=== PATIENT | male | born 1950 | race African-American/Black ===

== ENCOUNTER 2017-05-15 07:00 | Inpatient (IN) | payer BC ==
[~2017-05-15] VITALS: Ht 175.3 cm; Wt 79.2 kg
[2017-05-15] VITALS (21 sets, daily range): BP systolic 116–159; BP diastolic 62–96; PULSE 56–76; RESP 11–23; Ht 175.3 cm; Wt 79.2 kg
[2017-05-15] MEDS ORDERED: PROPOFOL 20 ML ONE (08:10)
[2017-05-15] MEDS ORDERED: MIDAZOLAM 1 MG/ML 2 ML INJ ONE (08:10)
[2017-05-15] MEDS ORDERED: LIDOCAINE 2% (SDV) 5 ML INJ ONE (08:10)
[2017-05-15] MEDS ORDERED: SUCCINYLCHOLINE CHLORIDE 100 MG/5 ML SYG IV ONE (08:10)
[2017-05-15] MEDS ORDERED: FENTAnyl 50 MCG/ML VIAL ONE ×2 (08:11→16:22)
[2017-05-15] MEDS ORDERED: LIDOCAINE 2% JELLY 5 ML ONE (08:15)
[2017-05-15] MEDS ORDERED: ELVI1TAB PO (08:26)
[2017-05-15] MEDS ORDERED: ONDANSETRON 4 MG INJ IV PRN ×2 (08:30→10:00)
[2017-05-15] MEDS ORDERED: DIPHENHYDRAMINE 50 MG INJ IV PRN ×2 (08:30→10:00)
[2017-05-15] MEDS ORDERED: LACTATED RINGER'S 1,000 ML IV SCH (08:30)
[2017-05-15] MEDS ORDERED: EPHEDrine SULFATE 50 MG/5 ML SYG IV PRN (08:30)
[2017-05-15] MEDS ORDERED: PROCHLORPERAZINE 10 MG INJ IV PRN (08:30)
[2017-05-15] MEDS ORDERED: HYDROmorphONE (0.2 MG/ML) 10ML SYG IV PRN (08:30)
[2017-05-15] MEDS ORDERED: hydrALAzine 20 MG INJ IV PRN (08:30)
[2017-05-15] MEDS ORDERED: LABETALOL HCL 20MG INJ IV PRN (08:30)
[2017-05-15] MEDS ORDERED: MEPERIDINE 25 MG INJ IV PRN (08:30)
[2017-05-15] MEDS ORDERED: CEFAZOLIN 2 GM/50 ML (PMX) 50 ML IVPB SCH (08:30)
[2017-05-15] MEDS ORDERED: FENTAnyl 50 MCG/ML VIAL IV PRN (08:30)
[2017-05-15] MEDS ORDERED: BUPIVACAINE 0.5%/EPI (SDV) 30 ML INJ ONE (08:41)
[2017-05-15] MEDS ORDERED: CEFAZOLIN 1 GM INJ ONE ×2 (08:41→11:28)
[2017-05-15] MEDS ORDERED: SURGIFOAM POWDER 1 GM KIT ONE (08:41)
[2017-05-15] MEDS ORDERED: GELATIN SIZE 100 SPONGE ONE (08:41)
[2017-05-15] MEDS ORDERED: HEPARIN 1000 UNITS/ML 10 ML INJ ONE (09:19)
--- NOTE | 2017-05-15 09:37 | HPN ---
Date/Time of Note Date/Time of Note DATE: 05/15/17 TIME: 09:37 Interval H&P Admission Note Pt. seen H&P reviewed: No system changes ANGIE KNAPP PA-C May 15, 2017 09:37
[2017-05-15] MEDS ORDERED: ACETAMINOPHEN 325 MG TAB PO PRN (10:00)
[2017-05-15] MEDS ORDERED: ZOLPIDEM 5 MG TAB PO PRN (10:00)
[2017-05-15] MEDS ORDERED: HYDROmorphONE 1 MG/ML SYG IV PRN (10:00)
[2017-05-15] MEDS ORDERED: CEPASTAT LOZENGE MT PRN (10:00)
[2017-05-15] MEDS ORDERED: NALOXONE (0.4 MG/ML) INJ IV PRN (10:00)
[2017-05-15] MEDS ORDERED: BISACODYL 10 MG SUPP PR PRN (10:00)
[2017-05-15] MEDS ORDERED: AL HYDROX/MG HYDROX/SIMETH 30 ML CUP PO PRN (10:00)
[2017-05-15] MEDS ORDERED: ROCURONIUM 50 MG INJ ONE ×2 (11:28→13:59)
[2017-05-15] MEDS ORDERED: METOCLOPRAMIDE 10 MG INJ ONE (11:29)
[2017-05-15] MEDS ORDERED: ONDANSETRON 4 MG INJ ONE (11:29)
[2017-05-15] MEDS ORDERED: DEXAMETHASONE 4 MG/ML 1 ML INJ ONE (11:29)
[2017-05-15] MEDS ORDERED: KETAMINE 500 MG INJ ONE (11:53)
[2017-05-15] MEDS ORDERED: HYDROmorphONE 2 MG/ML SYG ONE (13:03)
[2017-05-15] MEDS ORDERED: LABETALOL HCL 20MG INJ ONE (13:06)
[2017-05-15] MEDS: THROMBIN 5000 UNIT VIAL ONE ×2 (13:23→13:24)
[2017-05-15] MEDS ORDERED: SURGIFOAM POWDER 1 GM KIT MM ONE (13:25)
[2017-05-15] MEDS: CEFAZOLIN 1 GM/50 ML (PMX) 50 ML IVPB SCH ×2 (14:00→22:06)
--- NOTE | 2017-05-15 14:03 | OPR ---
DATE OF OPERATION: 05/15/2017 PREOPERATIVE DIAGNOSES: 1. History of L4-L5, L5-S1 instrumented fusion. 2. L4-L5 pseudoarthrosis. POSTOPERATIVE DIAGNOSES: 1. History of L4-L5, L5-S1 instrumented fusion. 2. L4-L5 pseudoarthrosis. PROCEDURE: 1. Removal of hardware posterior lumbar spine, L4, L5, S1, with evaluation of fusion. 2. Use of C-arm fluoroscopy with interpretation without radiologist present. 3. Intraoperative neuromonitoring (1.5 hours). PRIMARY SURGEON: Kurtis Harper MD ANALYST COMPETITIVE INTELLIGENCE: Tequila Rodgers PA-C NEED FOR HORSE STUD MANAGER: A surgical elastic knitter was required for retraction of neurovascular kar[place] ents. ESTIMATED BLOOD LOSS: 20 mL. DRAINS: None. SPECIMENS: Hardware. COMPLICATIONS OF PROCEDURES: None. ANESTHESIOLOGIST: Dr. Zapata TYPE OF ANESTHESIA: General. INDICATIONS FOR PROCEDURE: This is a 67-year-old HIV-positive gentleman who had previously undergon e 2 lumbar surgeries. He has undergone instrumented fusion at L4-L5 and L5-S1. He developed pseudo arthrosis at L4-L5 with loosened hardware. As such, it is recommended that he undergo the removal o f the hardware with fusion. This is stage I/III. DESCRIPTION OF PROCEDURE IN DETAIL: The patient was identified in preoperative holding area, given Ancef antibiotic, taken to the operating room, where he was successfully placed under general anesth esia. Neuromonitoring leads were placed, sequential compressive devices were applied. Atkins cathet er was introduced. Arterial line was placed. During Atkins catheter insertion, hematuria was identi fied, but there is no difficulty with passage of the Atkins catheter. Postoperative urology consulta tion will be obtained. Neuromonitoring leads were placed. Monitoring included SSEP, MEP, and EMG. This was performed by [facility]. Start time for this stage was 11:15 a.m., closure time was 12:30 p.m. The patient was placed on the operating table in prone position over a Venkata frame. All bony prominences were well padded about back was then prepped and draped in the usual sterile fashion. The C-arm was use d to identify the incision site. I utilized a portion of the patient's previous incision. Incision was taken down to dorsal fascia. This was incised with Bovie cautery. I then dissected out latera lly over where the screws would be. There was a sheet of bone over the screws bilaterally. This ma de the removal of the hardware more difficult and added at least 30 to 45 minutes to the procedure. I had to use osteotomes in order to chisel the bone off of the hardware to clearly skeletonized the hardware. I next removed the set screws at L4, L5, and S1 bilaterally with removal of the earl bila terally. I then evaluated the fusion, and there appeared to be fusion at L5-S1, but there was a pse udoarthrosis at L4-L5. I then irrigated the wound and provisionally closed this wound with an 0 Yoel ryl stitch and a 2-0 Vicryl stitch. Steri-Strips and dressings were then applied. The patient was then transferred to the operating table in supine position for stage II, which will be dictated separately. There were no complications during stage I. Lap, sponge, and instrument co unts were correct x2. FINDINGS: Neuromonitoring at the start of the case revealed bilateral L4 amplitude down 40%, left L 5 amplitude down 50%, right S1 amplitude down 30%. At the end of the case, nerve signals remained u nchanged. The patient had significant bone over the hardware throughout the lumbar spine. Dictated By: KURTIS SAXENA/DAYANARA Conf#: [id number] DID#: [id number]
[2017-05-15] MEDS ORDERED: ACETAMINOPHEN 1000MG/100ML IV 100 ML ONE (14:59)
[2017-05-15] MEDS ORDERED: SUGAMMADEX SODIUM 200 MG/2 ML VIAL IV ONE (14:59)
--- NOTE | 2017-05-15 15:57 | OPR ---
DATE OF OPERATION: 05/15/2017 PREOPERATIVE DIAGNOSES: History of L4-5, L5-S1 instrumented fusion with pseudoarthrosis and anterol isthesis at L4-5. POSTOPERATIVE DIAGNOSIS: History of L4-5, L5-S1 instrumented fusion with pseudoarthrosis and jimi listhesis at L4-5. PROCEDURES: 1. Anterior lumbar interbody fusion at L4-L5. 2. Placement of intervertebral biomechanical device at L4-5. 3. Use of allograft. 4. Anterior hardware at L4-5. 5. Application of NuShield. 6. Use of C-arm fluoroscopy with interpretation without radiologist present. 7. Intraoperative neuro-monitoring (1 hour 15 minutes). PRIMARY SURGEON: Dr. Kurtis Harper MD COSURGEON: Pawan Mendoza MD. SECOND SHAPER SETTER: Tequila Rodgers PA-C. NEED FOR CO-SURGEON: A co-surgeon was required in order to provide vascular access. This is standa rd of care. ESTIMATED BLOOD LOSS: Per Dr. Mendoza. DRAINS: None. SPECIMENS: L4-5 disk. COMPLICATIONS OF PROCEDURES: None. ANESTHESIOLOGIST: Dr. Zapata. TYPE OF ANESTHESIA: General. INDICATIONS FOR PROCEDURE: This is a 67-year-old gentleman who had previously undergone L4-5, L5-S1 instrumented fusion. He developed a pseudoarthrosis at L4-5. Stage I was completed with removal o f the posterior hardware and patient now presents for stage II. The other stages will be dictated s eparately. DESCRIPTION OF PROCEDURE IN DETAIL: The patient was placed on the operating table in supine positio n. Neuro-monitoring was utilized during this portion of the procedure for 1 hour and 15 minutes to include SSEP, MEP and EMG. This was performed by [facility]. Start time was 1 p.m., closure time was 2:15 p.m. All bony prominences were well padded. The abdomen was prepped and draped in [facility] sterile fashion. Dr. Mendoza performed an anterior approach to the spine from the left sided anterior retroperitoneal approach. He will dictate the approach separately. Once we identified the L4-5 level, a bent spinal needle was placed and AP and lateral imaging studies were obtained to con firm the correct levels. Annulotomy was performed followed by radical diskectomy using curettes, Ke rrison punches and pituitary rongeurs. Endplates were prepared. I placed various trials and chose the appropriate graft height. I then took the titanium cage within which I placed allograft and I i mpacted intervertebral biomechanical device into the L4-5 level to complete the anterior lumbar inte rbody fusion at L4-5. I then placed the anterior screws and plate using 25 mm screws. I was then a ble to place the screw all the way on the left due to the angle. Once the hardware was in place, I took final AP and lateral images and I was happy with placement of the hardware and alignment of the spine. All nerve signals returned to normal. The wound was irrigated. A NuShield device was appl ied and Dr. Mendoza proceeded to close the wound in layers and he will dictate the closure separat andria. Lap, sponge and instrument counts were correct x2. There were no apparent complications durin g this stage. The patient will be transferred into the prone position for stage III, which will be dictated separately. IMPLANTS: Renovis 13 mm x 7 degree x 30 x 38 mm titanium cage with 25 mm screws. FINDINGS: Neuro-monitoring at the start of the case revealed bilateral L4 amplitude down 40%, left L5 amplitude down 30%, right S1 amplitude down 30%. At the end of the case, nerve signals returned to normal. The patient had pseudoarthrosis at the L4-5 level. Dictated By: KURTIS SAXENA/DAYANARA Conf#: [id number] DID#: [id number]
[2017-05-15] MEDS ORDERED: EPHEDrine SULFATE 50 MG/5 ML SYG ONE (16:01)
--- NOTE | 2017-05-15 16:11 | RADRPT ---
PROCEDURE: Intraoperative imaging of the lumbar spine with fluoroscopy. CLINICAL INDICATION: Back pain. Intraoperative. TECHNIQUE: 14 images of the lumbar spine were obtained in the operating room with an image intensi fier. No radiologist was in attendance. Fluoroscopy time is 56 seconds. COMPARISON: No prior study is available for comparison. FINDINGS: For the purposes of this report, the last apparent true disc level is considered to be L5-S1. Based on this, images demonstrate pedicle screws and connecting rods at L4, L5, S1. Anterior fusion devic e is also present at L5-S1. There are bilateral total hip arthroplasties. IMPRESSION: 1. Intraoperative imaging of the lumbar spine. RPTAT: QQ .Aren Tolentino MD, MD Date Time Electronically viewed and signed by .Aren Tolentino MD, on 05/15/2017 16:10 .R/
--- NOTE | 2017-05-15 16:55 | SIPON ---
Date/Time of Note Date/Time of Note DATE: 05/15/17 TIME: 16:53 Operative Report Preoperative Diagnosis L4-5 pseudoarthrosis Postoperative Diagnosis L4-5 pseudo Operation/Procedure Performed L4-5 fusion Surgeon see signature line activities assistant Ana Maria Anesthesia: general Estimated blood loss: 150 - 200 ml's Transfusion Required none Specimen disk and hardware Grafts/Implants cage and screws Complications none ARUNA WHITMAN MD May 15, 2017 16:55
[2017-05-15] MEDS: HYDROmorphONE (0.2 MG/ML) 10ML SYG IV PRN ×2 (17:37→17:53)
[2017-05-15] MEDS: HYDROmorphONE 0.2 MG/ML PCA IV SCH (18:18)
[2017-05-15] MEDS: D5W-0.45 NACL + KCL 20 MEQ 1,000 ML IV SCH ×2 (19:37→20:13)
[2017-05-15] MEDS: DOCUSATE SODIUM 100 MG CAP PO SCH (20:14)
[2017-05-15] MEDS: morphine (ER) 15 MG TAB PO SCH (20:16)
--- NOTE | 2017-05-15 20:23 | CONS ---
Date/Time of Note Date/Time of Note DATE: 05/15/17 TIME: 20:12 Assessment/Plan Assessment/Plan Chief Complaint/Hosp Course 67-year-old male underwent surgery on his back today to remove screws, he has an indwelling Atkins catheter and the urine is blood-tinged. No similar problem with the urine in the past. We will send urine for culture and sensitivity also for cytology and once the urine is clear will discontinue the Atkins catheter and see if he does void and empty his bladder Problems: Consultation Date/Type/Reason Admit Date/Time May 15, 2017 at 07:45 Date of Consultation: May 15, 2017 Type of Consultation: Urology Reason for Consultation Gross hematuria Referring Provider: ARUNA WHITMAN MD Hx of Present Illness 67-year-old male underwent surgery for removal of screws from his back today. he had a Atkins catheter inserted at the time of the surgery and in the recovery room the urine was bloody therefore a urological consultation was requested the patient denies any prior history of gross hematuria. He does urinate at night once or twice during the day every 2-3 hours. His urinary stream is slow sometime. He is HIV positive asymptomatic and is on many medications for it his home medications include diclofenac ,Atripla , Truvada , he also has been on [place] for the pain and Ambien to sleep Constitutional: no complaints Eyes: no complaints ENT: no complaints Respiratory: no complaints Gastrointestinal: no complaints Genitourinary: hematuria, other (Atkins catheter in place) Musculoskeletal: back pain, no complaints Neurologic: no complaints Past Medical History Medical History: other (HIV positive) Past Surgical History Past Surgical Hx: other (Right inguinal hernia repair in addition to multiple surgeries bilateral hip replacement back surgery over the lumbar area as well as the cervical area) Social History Patient stated that he is homosexual and most likely he got the HIV about 30 years ago from sexual intercourse, 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 No allergies Smoking Status: Unknown if ever smoked Exam/Review of Systems Vital Signs Vitals Vital Signs Date Time Temp Pulse Resp B/P Pulse Ox O2 Delivery O2 Flow Rate FiO2 05/15/17 19:00 97.9 68 16 159/76 99 Room Air 05/15/17 17:16 8.0 Exam Constitutional: alert, oriented Psych: no complaints Head: normocephalic Eyes: nl conjunctiva ENMT: nl external ears & nose Neck: non-tender, supple Respiratory: normal air movement Cardiovascular: No edema Genitourinary - Male: nl penis, nl scrotum, other (Atkins draining blood-tinged urine but is clear than when I saw him in recovery room) Extremities: No calf tenderness, No edema Skin: nl turgor Lymph: nl lymph nodes Medications Medications Current Medications Lactated Ringer's 1,000 ml @ 0 mls/hr Q0M IV ; Start 05/15/17 at 08:30; Stop 05/15/17 at 21:00 Potassium Chloride/Dextrose/ Sod Cl (D5-1/2ns + KCl 20 Meq) 1,000 ml @ 100 mls/ hr Q10H IV ; Start 05/15/17 at 09:37 Acetaminophen/ Hydrocodone Bitart (Bat[place] (10/325)) 1 tab Q4H PRN PO PAIN LEVEL 1-5; Start 05/15/17 at 10:00 Acetaminophen/ Hydrocodone Bitart ([place] (10/325)) 2 tab Q4H PRN PO PAIN LEVEL 6-10; Start 05/15/17 at 10:00 Hydromorphone HCl 0.2 mg 0.2 mg Q1H PRN IV BREAKTHROUGH PAIN; Start 05/15/17 at 10:00 Cefazolin Sodium (Ancef 1 Gm/50 ml (Pmx)) 50 ml @ 100 mls/hr Q8H IVPB ; Start 05/15/17 at 14:00; Stop 05/16/17 at 06:29 Ondansetron HCl (Zofran Inj) 4 mg Q6H PRN IV NAUSEA AND/OR VOMITING; Start 05/22 at 10:00 Bisacodyl (Dulcolax Supp) 10 mg DAILY PRN DC CONSTIPATION; Start 05/15/17 at 10:00 Docusate Sodium (Colace) 100 mg BID PO ; Start 05/15/17 at 21:00 Al Hydrox/Mg Hydrox/Simethicone (Mag-Al Plus) 15 ml Q6H PRN PO CONSTIPATION/ DYSPEPSIA; Start 05/15/17 at 10:00 Acetaminophen (Tylenol Tab) 650 mg Q4H PRN PO VICTORIA OR TEMP GREATER THAN 101.3F; Start 05/15/17 at 10:00 Cyclobenzaprine HCl (Flexeril) 10 mg TID PRN PO MUSCLE SPASMS; Start 05/15/17 at 10:00 Phenol (Cepastat Lozenge) 1 lozenge PRN PRN MT SORE THROAT; Start 05/15/17 at 10:00 Diphenhydramine HCl (Benadryl) 25 mg Q6H PRN IV ITCHING; Start 05/15/17 at 10: 00 Naloxone HCl (Narcan) 0.2 mg Q2M PRN IV RR 8 BREATHS/MIN OR LESS; Start at 10:00 Hydromorphone HCl (Dilaudid PIPELINE OPERATOR) PIPELINE OPERATOR to be started in PACU Q4PCA IV Last administered on 05/15/17t 18:18; Admin Dose 6 MG; Start 05/15/17 at 10:00 Miscellaneous Information 1. Hold PIPELINE OPERATOR at 1,000... PIPELINE OPERATOR IV ; Start 05/15/17 at 10 :00 Morphine Sulfate (Ms Contin (Er)) 15 mg BID PO ; Start 05/15/17 at 21:00 Miscellaneous Information (* Miscellaneous Pharmacy Order) atripla - 1 PO daily sara... ONCE XX ; Start 05/15/17 at 10:00 OKSANA BERUMEN MD May 15, 2017 20:22
[2017-05-16] VITALS: BP 153/71; PULSE 87; RESP 19
[2017-05-16] MEDS: CYCLOBENZAPRINE 10 MG TAB PO PRN ×2 (00:05→08:45)
--- NOTE | 2017-05-16 02:00 | OPR ---
DATE OF OPERATION: 05/15/2017 PREOPERATIVE DIAGNOSIS: Pseudoarthrosis at L4-5 with history of previous L4-5, L5-S1 instrumented f usion, now status post anterior lumbar interbody fusion at L4-5. POSTOPERATIVE DIAGNOSIS: Pseudoarthrosis at L4-5 with history of previous L4-5, L5-S1 instrumented fusion, now status post anterior lumbar interbody fusion at L4-5. PROCEDURE: 1. Removal of pedicle screws at L4, L5, S1 bilaterally with placement of new pedicle screws at L4 a nd L5 on the left. 2. Posterolateral fusion at L4-5. 3. Use of C-arm fluoroscopy with interpretation without radiologist present. 4. Allograft. 5. Intraoperative neuromonitoring (1 hour 45 minutes). PRIMARY SURGEON: Kurtis Harper MD MANAGER OPERATIONS AND PROCUREMENT: Tequila Rodgers PA-C NEED FOR PRIVATE DUTY NURSE: During this spinal surgical procedure, my legal assistant was used to retrac t and protect the spinal nerves and dural sac. My legal assistant also employed the suction catheters to evacuate blood from the surgical field to improve visualization of the neural structures. The constance tant was medically necessary to facilitate the completion of the surgery in a safe and expeditious gilda. State of [place] regulations, as well as hospital bylaws, preclude the use of non-license d health care personnel, such as operating room technicians, to perform these functions. IMPLANTS: 1. NeuroStructures Palladian pedicle screws, 8.5 x 50 mm left L4, 7.5 x 45 mm left L5. 2. Fibergraft matrix. 3. 40 mm earl. FINDINGS: Neuromonitoring at the start and at the end of the case were normal. Please see body of dictation for full report of findings. ESTIMATED BLOOD LOSS: 60 mL. DRAINS: None. SPECIMENS: Hardware. COMPLICATIONS OF PROCEDURES: None. ANESTHESIOLOGIST: Dr. Zapata TYPE OF ANESTHESIA: General. INDICATIONS FOR PROCEDURE: This is a 67-year-old gentleman who has previously undergone an L4 to S1 instrumented fusion several years ago. He developed pseudoarthrosis at L4-5. Given this, I recomm ended that he undergo revision surgery. He has completed the anterior portion, which is dictated se parately, and now presents for stage III of the surgery. Previous stages are dictated separately. DESCRIPTION OF PROCEDURE IN DETAIL: The patient completed stage I and II of the surgery which were dictated separately. He was placed on the operating table in prone position. All bony prominences were well padded. Neuromonitoring was utilized during this portion of the procedure for 1 hour and 45 minutes, to include SSEP, MEP and EMG. This was performed by [facility]. Start time was 2 :45 p.m., closure time was 4:30 p.m. The back was prepped and draped in usual sterile fashion. I u sed the patient's previous incision. I incised the skin and the dorsal fascia. I dissected out and identified the hardware bilaterally. I next removed the pedicle screws at L4, L5 and S1. Once scr ews were removed, I irrigated the wound. I curetted the screw holes. There were no signs of an inf ection. On the left, I placed pedicle screws at L4 and L5 using larger diameter screws at both leve ls and a longer screw at the upper level. The previous screws on this side were 6.5 x 45 mm. The S 1 screw was not replaced. This was not done given that he had already fused at L5-S1. On the right side, I placed 8.5 mm screws at L4 and L5, but these screws did not have good purchase and therefor e they were removed and I elected not to place hardware on this side. I irrigated the wound. I ralph phyllis the appropriate sized earl with set screws, tightening per manufacture's specifications. Once th e hardware was in, I took final AP and lateral images. I was happy with placement of the hardware a nd alignment of the spine. I then took the Fibergraft matrix allograft and I placed this into the s crew holes bilaterally at S1 and on the right at L4 and L5 to fill the bone void. I then performed a posterolateral fusion at L4-5 with the allograft. I then closed the wound with a #1 Stratafix sut ure. I closed subcutaneous tissue with a 2-0 Vicryl stitch. A 4-0 Monocryl closure was then perfor med. Dermabond and sterile dressings then applied. The patient was then awakened from anesthesia a nd taken to recovery in stable condition. Lap, sponge and instrument counts were correct x2. There were no apparent complications during the procedure. The patient will be admitted to [facility] for routine postoperative care to include pain contr ol, neurovascular checks, antibiotics and physical therapy. Dictated By: KURTIS HARPER MD BB/DAYANARA Conf#: [id number] DID#: [id number]
--- NOTE | 2017-05-16 03:28 | CONS ---
DATE OF ADMISSION: 05/15/2017 DATE OF CONSULTATION: REASON FOR CONSULTATION: Evaluation for anterior retroperitoneal exposure, interbody fusion of the lumbosacral spine. HISTORY OF PRESENT ILLNESS: This is a 67-year-old male with a history of HIV, degenerative disk dis ease, lumbosacral spine, who is undergoing an anterior retroperitoneal exposure at level of L4-L5. PAST MEDICAL HISTORY: Positive for HIV. PAST SURGICAL HISTORY: Posterior spine surgery. ALLERGIES: NONE. SOCIAL HISTORY: No smoking, drinking or drug use. MEDICATIONS: List reviewed. PHYSICAL EXAMINATION: VITAL SIGNS: Blood pressure is 110/60, pulse is 80, respirations 18. CARDIOVASCULAR: Normal S1, S2. LUNGS: Clear. ABDOMEN: Soft. EXTREMITIES: Warm. IMPRESSION: Degenerative disk disease, lumbosacral spine. RECOMMENDATIONS: We will proceed with anterior retroperitoneal exposure and interbody fusion, lumbo sacral spine. Risks, benefits, complications, alternative therapies explained to the patient. All questions answered. Risks and benefits that were explained to the patient and the family included, but not limited to, bleeding, infection, damage to the bowels, damage to the ureter, retrograde ejac ulation, loss of limb, loss of life, DVT, PE, need for further surgeries and others. All questions answered. Dictated By: CAREY BYRD MD FM/DAYANARA Conf#: [id number] DID#: [id number] CC: ARUNA WHITMAN MD;*EndCC*
--- NOTE | 2017-05-16 03:37 | OPR ---
DATE OF OPERATION: PREOPERATIVE DIAGNOSIS: Degenerative disk disease, lumbosacral spine. POSTOPERATIVE DIAGNOSIS: Degenerative disk disease, lumbosacral spine. PROCEDURE: 1. Anterior retroperitoneal exposure, interbody fusion, lumbosacral spine. 2. Lysis of adhesions. 3. Unusually difficult operation secondary to adhesions which added 20% to the length of the opera tion. SURGEON: Dr. Mendoza CO-SURGEON: Dr. Harper INFORMED CONSENT: Risks, benefits, complications, alternative therapies, high risk nature of the op eration fully explained to the patient and the family, consent obtained. Risks and benefits that we re explained to the patient and the family included, but not limited to, bleeding, infection, damage to the bowels, damage to ureter, retrograde ejaculation, sexual dysfunction, loss of limb, loss of life, PE, DVT, blood transfusions and others. All questions answered. OPERATIVE TECHNIQUE: The patient was placed in supine position, prepped and draped in usual sterile fashion. An 8 cm incision was made left lower quadrant in horizontal fashion. Incision was taken down to the subcutaneous tissue which was then opened using electrocautery. The left anterior rectu s sheath was opened in the direction of the wound. Posterior rectus sheath was opened longitudinall y about 2 cm. Bookwalter retractor was placed, retracting the bowel contents to the right, left rec tus muscle to the left. After dissecting the soft tissue, the left psoas muscle was identified, in addition to a left common and external iliac artery, left common and external iliac vein and the ure ter. The left common and external iliac artery was dissected using a peanut dissector. Left common and e xternal iliac vein was dissected using a peanut dissector. Left iliolumbar vein was transected usin g 2-0 silk sutures and a titanium tie. The lowest lumbar vessels were ligated using titanium clips. The exposure for L4-L5 was obtained by retracting the left common iliac artery and vein, and vena cava and aorta to the right. We proceeded with diskectomy and the placement of a new cage. Please refer to Dr. Harper's dictation for the details of that operation. After all the x-rays were sat isfactory, read by Dr. Harper, needle counts and sponge count were correct, no evidence of any bl eeding was noted. The wound was irrigated using antibiotic solution. Posterior rectus sheath was c losed using the 0 Vicryl suture in a running fashion. Anterior rectus sheath was closed using a #1 Vicryl suture in running fashion with interrupted sutures in the middle, and the wound was irrigated and closed in 2 layers of 3-0 Vicryl suture for subcutaneous and Steri-Strips for the skin. Patien t tolerated procedure well. Dictated By: CAREY VALDIVIA/DAYANARA Conf#: [id number] DID#: [id number]
[2017-05-16] MEDS: CEFAZOLIN 1 GM/50 ML (PMX) 50 ML IVPB SCH (04:43)
[2017-05-16] MEDS: D5W-0.45 NACL + KCL 20 MEQ 1,000 ML IV SCH ×2 (04:43→15:37)
[2017-05-16 05:27] VITALS: BP 172/82; PULSE 107; RESP 21
[2017-05-16 05:49] LABS: ABNORMAL IP MESSAGE 1; BASOPHILS % 0.3 % (0.0-2.0); EOSINOPHILS % 0.1 % (0.0-7.0); HEMATOCRIT 36.8 % (42.0-52.0); HEMOGLOBIN 12.9 g/dl (14.0-18.0); LYMPHOCYTES # 1.9 10^3/ul (0.8-2.9); LYMPHOCYTES % 13.6 % (15.0-51.0); MEAN CORPUSCULAR HEMOGLOBIN 33.8 pg (29.0-33.0); MEAN CORPUSCULAR HGB CONC 35.1 g/dl (32.0-37.0); MEAN CORPUSCULAR VOLUME 96.3 fl (82.0-101.0); MEAN PLATELET VOLUME 13.2 fl (7.4-10.4); MONOCYTE # 1.2 10^3/ul (0.3-0.9); MONOCYTES % 8.7 % (0.0-11.0); NEUTROPHIL # 10.8 10^3/ul (1.6-7.5); NEUTROPHILS % 76.9 % (39.0-77.0); PLATELET COUNT 125 10^3/UL (140-415); POSITIVE DIFF @See below; RED BLOOD COUNT 3.82 10^6/ul (4.70-6.10); RED CELL DISTRIBUTION WIDTH 11.9 % (11.5-14.5); WHITE BLOOD COUNT 14.1 10^3/ul (4.8-10.8)
[2017-05-16 06:36] LABS: CALCIUM 8.4 mg/dl (8.4-10.2); CREATININE 0.91 mg/dl (0.61-1.24); MAGNESIUM 1.7 mg/dl (1.7-2.5); POTASSIUM 3.9 mmol/L (3.5-5.1)
[2017-05-16 07:54] VITALS: BP 173/87; RESP 21
[2017-05-16] MEDS ORDERED: MAGNESIUM SULFATE 3 GM in SOD CHLORIDE 0.9% 100 ML IVPB ONE (08:30)
[2017-05-16] MEDS: morphine (ER) 15 MG TAB PO SCH ×2 (08:44→20:19)
[2017-05-16] MEDS: DOCUSATE SODIUM 100 MG CAP PO SCH ×2 (08:45→20:19)
--- NOTE | 2017-05-16 09:08 | CONS ---
DATE OF ADMISSION: 05/15/2017 DATE OF CONSULTATION: 05/16/2017 TYPE OF CONSULTATION: Postoperative medical consultation. Thank you very much for allowing me to evaluate this 67-year-old male who just underwent lumbar back surgery. HISTORICAL EVENTS: As you well know, this patient has had prior lumbar spine surgeries in 1999 and 2002 and because of continued pain, it was felt that surgical intervention needed for removal of a " screw". Postoperatively, he notes modest to severe low back pain without radicular leg pain. He de nies cough, wheezing, shortness of breath, nausea, vomiting, or abdominal pain. PAST MEDICAL HISTORY INCLUDES: 1. HIV positivity, being asymptomatic. 2. The above-mentioned spine surgery. 3. Cervical laminectomy. 4. Bilateral hip replacement. 5. No history of hypertension, diabetes, coronary artery disease, phlebitis or ulcers. FAMILY HISTORY: To be reviewed later. ALLERGIES: NONE. MEDICATIONS PRIOR TO ADMISSION: 1. Diclofenac patch b.i.d. 2. Atripla 1 daily. 3. [place] 1 q. 6 p.r.n. PHYSICAL EXAMINATION: GENERAL: [place] male in no acute distress. VITAL SIGNS: BP 118/80, pulse 70, respirations are 20, he was afebrile. EYES: Extraocular muscles were full. NOSE, MOUTH, AND THROAT: Normal. NECK: Supple. There was no jugular venous distention, thyroid enlargement or adenopathy. Carotids 2+. LUNGS: Clear. HEART: Rhythm regular, no murmur. No third or fourth sound. ABDOMEN: Nontender. Liver and spleen were not palpable. No masses or tenderness were noted. EXTREMITIES: No edema. Calves nontender. IMPRESSION: 1. Stable postop lumbar back surgery with now moderate to severe pain, receiving parenteral narcoti cs. 2. Human immunodeficiency virus positivity. We will continue human immunodeficiency virus medicati ons. We will evaluate daily for signs and symptoms of thromboembolic disease. Dictated By: RAGHAVENDRA ARCE/DAYANARA Conf#: [id number] DID#: [id number]
[2017-05-16 10:30] VITALS: BP 151/81
--- NOTE | 2017-05-16 10:47 | PN ---
Date/Time of Note Date/Time of Note DATE: 05/16/17 TIME: 10:45 Assessment/Plan Lines/Catheters IV Catheter Type (from Nrsg): Peripheral IV Assessment/Plan Assessment/Plan POD #1 s/p revision L4-5 ALIF HTN - Dr. 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
[2017-05-16] MEDS: HYDROmorphONE 0.2 MG/ML PCA IV SCH (11:32)
[2017-05-16] MEDS: ELVITEGR/COBICIST/EMTRIC/TENOF 1 EACH TABLET PO SCH (12:43)
[2017-05-16 13:12] LABS: ADD UMIC YES; UR ASCORBIC ACID NEGATIVE (NEGATIVE); UR BILIRUBIN (Dip) NEGATIVE (NEGATIVE); UR BLOOD (Dip) 3+ mg/dL (NEGATIVE); UR CLARITY CLOUDY (CLEAR); UR COLOR YELLOW (YELLOW); UR GLUCOSE (Dip) NEGATIVE (NEGATIVE); UR KETONES (Dip) NEGATIVE (NEGATIVE); UR LEUKOCYTE ESTERASE (Dip) NEGATIVE Leu/ul (NEGATIVE); UR NITRITE (Dip) NEGATIVE (NEGATIVE); UR RBC > 182 /HPF (0-5); UR SPECIFIC GRAVITY (Dip) 1.025 (1.003-1.030); UR TOTAL PROTEIN (Dip) 2+ mg/dl (NEGATIVE); UR UROBILINOGEN (Dip) NEGATIVE (NEGATIVE)
[2017-05-16] MEDS: HYDROCODONE/APAP (10/325) TAB PO PRN (17:53)
[2017-05-16 20:49] VITALS: BP 127/73; RESP 20
[2017-05-17] MEDS: D5W-0.45 NACL + KCL 20 MEQ 1,000 ML IV SCH ×3 (01:37→21:37)
[2017-05-17 05:45] LABS: ABNORMAL IP MESSAGE 1; BASOPHILS % 0.2 % (0.0-2.0); EOSINOPHILS # 0.1 10^3/ul (0.0-0.5); EOSINOPHILS % 0.5 % (0.0-7.0); HEMOGLOBIN 12.6 g/dl (14.0-18.0); LYMPHOCYTES # 0.9 10^3/ul (0.8-2.9); LYMPHOCYTES % 8.5 % (15.0-51.0); MEAN CORPUSCULAR HEMOGLOBIN 32.8 pg (29.0-33.0); MEAN CORPUSCULAR HGB CONC 34.1 g/dl (32.0-37.0); MEAN CORPUSCULAR VOLUME 96.4 fl (82.0-101.0); MEAN PLATELET VOLUME 13.2 fl (7.4-10.4); MONOCYTE # 1.1 10^3/ul (0.3-0.9); MONOCYTES % 10.5 % (0.0-11.0); NEUTROPHIL # 8.5 10^3/ul (1.6-7.5); NEUTROPHILS % 79.9 % (39.0-77.0); PLATELET COUNT 119 10^3/UL (140-415); POSITIVE DIFF @See below; RED BLOOD COUNT 3.84 10^6/ul (4.70-6.10); RED CELL DISTRIBUTION WIDTH 12.3 % (11.5-14.5); WHITE BLOOD COUNT 10.7 10^3/ul (4.8-10.8)
[2017-05-17 05:58] LABS: CALCIUM 9.1 mg/dl (8.4-10.2); CREATININE 0.94 mg/dl (0.61-1.24); MAGNESIUM 2.2 mg/dl (1.7-2.5); POTASSIUM 4.4 mmol/L (3.5-5.1)
[2017-05-17 07:58] VITALS: BP 148/71; RESP 20
--- NOTE | 2017-05-17 08:05 | PN ---
Date/Time of Note Date/Time of Note DATE: 05/17/17 TIME: 08:03 Assessment/Plan Lines/Catheters IV Catheter Type (from Nrs): Peripheral IV Assessment/Plan Assessment/Plan s/p revision lumbar fusion probable HIV dementia urology consult given hematuria and PVR patient is aware of his confusion - was present pre-op acute rehab consult Subjective 24 Hr Interval Summary patient is aware of his confusion Exam/Review of Systems Vital Signs Vitals Vital Signs Date Time Temp Pulse Resp B/P Pulse Ox O2 Delivery O2 Flow Rate FiO2 05/17/17 07:58 98.3 81 20 148/71 99 05/16/17 05:27 Room Air 05/15/17 17:16 8.0 Intake and Output 05/16/17 05/16/17 05/17/17 15:00 23:00 07:00 Intake Total 900 ml 950 ml Output Total 1100 ml 936 ml Balance -200 ml 14 ml Exam Free Text/Dictation neuro deficits same as preop Results Result Diagram: 05/17/17 0447 05/17/17 0447 ARUNA WHITMAN MD May 17, 2017 08:05
[2017-05-17] MEDS: DOCUSATE SODIUM 100 MG CAP PO SCH ×2 (08:53→20:31)
[2017-05-17] MEDS: ELVITEGR/COBICIST/EMTRIC/TENOF 1 EACH TABLET PO SCH (08:53)
[2017-05-17] MEDS: morphine (ER) 15 MG TAB PO SCH ×2 (08:57→20:30)
--- NOTE | 2017-05-17 09:10 | PN ---
DATE: 05/16/2017 SUBJECTIVE: The patient has hematuria after he had surgery yesterday on his back. He does have hem aturia and the patient had an indwelling Atkins catheter. The patient at the present is feeling comf ortable and he denies having any discomfort from the Atkins catheter. PHYSICAL EXAMINATION: VITAL SIGNS: Temperature is 97.7, pulse is 84, respirations 21, blood pressure 151/81. ABDOMEN: Soft. GENITOURINARY: The Atkins catheter is draining clear, but mildly blood-tinged urine. LABORATORY DATA: His CBC shows a white count of 14.1, hemoglobin 12.9, hematocrit 36.8. BUN is 13, creatinine 0.91, sodium 136, potassium 3.9, chloride 107, CO2 21. The urine culture was sent last night and no growth after 24 hours. Urine was also sent for urine cytology x4 and that is still pen ding. The patient is on medications for his HIV positive status, and the patient is also on pain medicatio ns and he was on Ancef, but that was stopped. PLAN: To discontinue the Atkins catheter at 6:00 a.m. and do bladder scan after each voiding and if he does void and has any postvoid residual over 300 mL, he will do straight catheterization, or if h e does not urinate and the bladder volume is over 500, will do straight catheterization as well. Dictated By: OKSANA BERUMEN MD BB/DAYANARA Conf#: [id number] DID#: [id number] CC: ARUNA WHITMAN MD;*[facility]*
[2017-05-17] MEDS ORDERED: HYDROmorphONE 0.5 MG/0.5 ML SYG IV PRN (11:00)
--- NOTE | 2017-05-17 11:13 | CONS ---
Date/Time of Note Date/Time of Note DATE: 05/17/17 TIME: 11:00 Assessment/Plan Assessment/Plan Chief Complaint/Hosp Course 1. This patient is now 2 days postop lumbar spine surgery through an anterior and posterior approach. Underwent a redo spinal fusion surgery. Last evening he became confused and aggressive. He does have a history of intermittent "dementia" which was known preoperatively. The details of this "dementia " are not available. 2. Altered mental status due to a prior neurologic disease . The patient has a normal neurologic exam today. He has no obvious focal neurologic deficits. He has a sister in the room with him 3. HIV positive on medication 4. Hypertension, coming under control on current medication. 5. Continue current medication and physical therapy. The patient is being considered for acute rehab unit. 6. Urinary retention. A Atkins catheter was removed this morning and the patient is voiding with low postvoid residual urine volumes. Problems: Consultation Date/Type/Reason Admit Date/Time May 15, 2017 at 07:45 Initial Consult Date 05/15/17 Type of Consultation: Urology Referring Provider: ARUNA WHITMAN MD 24 HR Interval Summary Free Text/Dictation He is now 2 days postop a anterior posterior lumbar spine 2 stage surgery. Patient is awake and responsive this morning. He became confused and aggressive last evening. Security was called. He was transferred to in a different room closer to the nurses desk. This morning he knows his name. He is confused to time and place. From reading the chart appears that the patient has a history of "HIV dementia". Constitutional: improved, no complaints Exam/Review of Systems Vital Signs Vitals Vital Signs Date Time Temp Pulse Resp B/P Pulse Ox O2 Delivery O2 Flow Rate FiO2 05/17/17 07:58 98.3 81 20 148/71 99 05/16/17 05:27 Room Air 05/15/17 17:16 8.0 Intake and Output 05/16/17 05/16/17 05/17/17 15:00 23:00 07:00 Intake Total 900 ml 950 ml Output Total 1100 ml 936 ml Balance -200 ml 14 ml Exam Constitutional: alert Psych: confusion Neck: supple Respiratory: clear to auscultation Cardiovascular: regular rate and rhythm Gastrointestinal: soft, tender Musculoskeletal: nl extremities to inspection Results Result Diagram: 05/17/1744605/17/17446 Results 24 hrs Laboratory Tests Test 05/17/17 04:47 05/17/17 08:10 White Blood Count 10.7 # Red Blood Count 3.84 L Hemoglobin 12.6 L Hematocrit 37.0 L Mean Corpuscular Volume 96.4 Mean Corpuscular Hemoglobin 32.8 Mean Corpuscular Hemoglobin Concent 34.1 Red Cell Distribution Width 12.3 Platelet Count 119 L Mean Platelet Volume 13.2 H Neutrophils % 79.9 H Lymphocytes % 8.5 L Monocytes % 10.5 Eosinophils % 0.5 Basophils % 0.2 Nucleated Red Blood Cells % 0.0 Neutrophils # 8.5 H Lymphocytes # 0.9 Monocytes # 1.1 H Eosinophils # 0.1 Basophils # 0.0 Nucleated Red Blood Cells # 0.0 Sodium Level 136 Potassium Level 4.4 Chloride Level 104 Carbon Dioxide Level 28 Anion Gap 8 Blood Urea Nitrogen 12 Creatinine 0.94 Glucose Level 115 Calcium Level 9.1 Phosphorus Level 2.1 L Magnesium Level 2.2 Bedside Glucose 160 Medications Medications Current Medications Potassium Chloride/Dextrose/ Sod Cl (D5-1/2ns + KCl 20 Meq) 1,000 ml @ 100 mls/ hr Q10H IV Last administered on 05/16/17 04:43; Admin Dose 100 MLS/HR; Start 05/15/17 at 09:37 Acetaminophen/ Hydrocodone Bitart ([place] (10/325)) 1 tab Q4H PRN PO PAIN LEVEL 1-5 Last administered on 05/16/17 17:53; Admin Dose 1 TAB; Start 05/15/17 at 10:00 Acetaminophen/ Hydrocodone Bitart ([place] (10/325)) 2 tab Q4H PRN PO PAIN LEVEL 6-10; Start 05/15/17 at 10:00 Ondansetron HCl (Zofran Inj) 4 mg Q6H PRN IV NAUSEA AND/OR VOMITING; Start 05/22 at 10:00 Bisacodyl (Dulcolax Supp) 10 mg DAILY PRN IN CONSTIPATION; Start 05/15/17 at 10:00 Docusate Sodium (Colace) 100 mg BID PO Last administered on 05/17/17 08:53; Admin Dose 100 MG; Start 05/15/17 at 21:00 Al Hydrox/Mg Hydrox/Simethicone (Mag-Al Plus) 15 ml Q6H PRN PO CONSTIPATION/ DYSPEPSIA; Start 05/15/17 at 10:00 Acetaminophen (Tylenol Tab) 650 mg Q4H PRN PO VICTORIA OR TEMP GREATER THAN 101.3F; Start 05/15/17 at 10:00 Cyclobenzaprine HCl (Flexeril) 10 mg TID PRN PO MUSCLE SPASMS Last administered on 05/16/17 08:45; Admin Dose 10 MG; Start 05/15/17 at 10:00 Phenol (Cepastat Lozenge) 1 lozenge PRN PRN [place] SORE THROAT; Start 05/15/17 at 10:00 Diphenhydramine HCl (Benadryl) 25 mg Q6H PRN IV ITCHING; Start 05/15/17 at 10: 00 Naloxone HCl (Narcan) 0.2 mg Q2M PRN IV RR 8 BREATHS/MIN OR LESS; Start at 10:00 Miscellaneous Information 1. Hold PROVIDER RELATIONS REPRESENTATIVE at 1,000... PROVIDER RELATIONS REPRESENTATIVE IV ; Start 05/15/17 at 10 :00 Morphine Sulfate (Ms Contin (Er)) 15 mg BID PO Last administered on 05/17/17 08:57; Admin Dose 15 MG; Start 05/15/17 at 21:00 Miscellaneous Information (* Miscellaneous Pharmacy Order) atripla - 1 PO daily sara... ONCE XX ; Start 05/15/17 at 10:00 Elvitegravir/ Cobicis/Emtricit/ Tenof (Stribild Tablet) 1 each DAILY PO Last administered on 05/17/17 08:53; Admin Dose 1 EACH; Start 05/16/17 at 12:00 Clonidine (Catapres) 0.1 mg QID PO Last administered on 05/17/17 08:53; Admin Dose 0.1 MG; Start 05/16/17 at 09:00 Hydromorphone HCl (Dilaudid) 0.2 mg Q1H PRN IV BREAKTHROUGH PAIN; Start at 11:00 JERRY MARQUEZ MD May 17, 2017 11:10
[2017-05-17] MEDS: HYDROCODONE/APAP (10/325) TAB PO PRN ×2 (14:35→16:04)
[2017-05-17 15:21] VITALS: BP 127/60; RESP 20
[2017-05-17 19:31] VITALS: BP 140/70; RESP 18
--- NOTE | 2017-05-17 20:48 | PN ---
DATE: 05/17/2017 SUBJECTIVE: The patient did have gross hematuria in his Atkins catheter which was removed yesterday, and since then he has been voiding and he denies having any pain and he states that he is voiding w ell. He, however, is confused and has been very restless. Yesterday, they had to call security to help hold him down. OBJECTIVE FINDINGS: His temperature is 100.1, the pulse is 80, respiration 20, blood pressure 127/6 0. LABORATORY DATA: His CBC shows a white count of 10.7, hemoglobin 12.6, hematocrit 37.0, platelet co unt is 119,000. The BUN is 12, creatinine 0.94. Electrolytes are normal. Urine culture that was s ent on 05/15/2017 and 05/16/2017 showed no growth after 48 hours and no growth after 24 hours. Urin e cytology was sent also because of the hematuria and that showed no malignant cells. There are sti ll 3 other specimens that are pending. The patient did urinate multiple times and the bladder scan, according to the nursing staff, did show the patient had a small postvoid residual. RECOMMENDATION: To wait for the urine cytology and also the final report of the urine culture, and he should follow up later on as an outpatient to make sure that there is nothing that caused his hem aturia. Dictated By: OKSANA SAXENA/DAYANARA Conf#: [id number] DID#: [id number]
[2017-05-18] MEDS: HYDROCODONE/APAP (10/325) TAB PO PRN ×2 (01:46→10:32)
[2017-05-18 02:06] VITALS: BP 128/73; RESP 18
[2017-05-18] MEDS: D5W-0.45 NACL + KCL 20 MEQ 1,000 ML IV SCH (06:10)
[2017-05-18 08:24] VITALS: BP 126/59; RESP 18
[2017-05-18 08:27] VITALS: BP 126/59; PULSE 69; RESP 18
[2017-05-18] MEDS: morphine (ER) 15 MG TAB PO SCH (08:42)
[2017-05-18] MEDS: DOCUSATE SODIUM 100 MG CAP PO SCH (08:42)
[2017-05-18] MEDS: ELVITEGR/COBICIST/EMTRIC/TENOF 1 EACH TABLET PO SCH (10:31)
--- NOTE | 2017-05-18 10:31 | CONS ---
Date/Time of Note Date/Time of Note DATE: 05/18/17 TIME: 10:21 Assessment/Plan Assessment/Plan Chief Complaint/Hosp Course 1. This patient is now 3 days postop lumbar spine surgery through an anterior and posterior approach. Underwent a redo spinal fusion surgery. 2 nights ago he became confused and aggressive. He does have a history of intermittent "dementia" which was known preoperatively. He is oriented X 3 today and he says that he is back to his baseline mental status . He can be discharged to home today . 2. The patient has a normal neurologic exam today. He has no obvious focal neurologic deficits. 3. HIV positive on medication 4. Hypertension, coming under control on current medication. 5. Continue current medication and physical therapy. The patient is being considered for acute rehab unit. 6. Urinary retention. A Atkins catheter was removed this morning and the patient is voiding with low postvoid residual urine volumes. Problems: Consultation Date/Type/Reason Admit Date/Time May 15, 2017 at 07:45 Initial Consult Date 05/15/17 Type of Consultation: Urology Referring Provider: ARUNA WHITMAN MD 24 HR Interval Summary Free Text/Dictation He is 3 days post op a 2 stage lumbar spine surgery .The patient is up walking with PT and is doing well . He is oriented and back to his baseline mental status . Constitutional: improved, no complaints Exam/Review of Systems Vital Signs Vitals Vital Signs Date Time Temp Pulse Resp B/P Pulse Ox O2 Delivery O2 Flow Rate FiO2 05/18/17 08:27 98.1 69 18 126/59 96 Room Air 05/15/17 17:16 8.0 Intake and Output 05/17/17 05/17/17 05/18/17 14:59 22:59 06:59 Intake Total 700 ml 1200 ml Output Total 650 ml Balance 50 ml 1200 ml Exam Constitutional: alert, oriented Respiratory: clear to auscultation, normal air movement Cardiovascular: regular rate and rhythm Gastrointestinal: non-tender, soft Musculoskeletal: nl extremities to inspection Results Result Diagram: 05/17/17 0447 05/17/17 0447 Medications Medications Current Medications Potassium Chloride/Dextrose/ Sod Cl (D5-1/2ns + KCl 20 Meq) 1,000 ml @ 100 mls/ hr Q10H IV Last administered on 05/16/17t 04:43; Admin Dose 100 MLS/HR; Start 05/15/17 at 09:37 Acetaminophen/ Hydrocodone Bitart ([employer] ()) 1 tab Q4H PRN PO PAIN LEVEL 1-5 Last administered on 05/17/17 14:35; Admin Dose 1 TAB; Start 05/15/17 at 10:00 Acetaminophen/ Hydrocodone Bitart ([employer] (325)) 2 tab Q4H PRN PO PAIN LEVEL 6-10 Last administered on 05/18/17 01:46; Admin Dose 2 TAB; Start 05/15/17 at 10:00 Ondansetron HCl (Zofran Inj) 4 mg Q6H PRN IV NAUSEA AND/OR VOMITING; Start 05/22 at 10:00 Bisacodyl (Dulcolax Supp) 10 mg DAILY PRN [place] CONSTIPATION; Start 05/15/17 at 10:00 Docusate Sodium (Colace) 100 mg BID PO Last administered on 05/18/17 08:42; Admin Dose 100 MG; Start 05/15/17 at 21:00 Al Hydrox/Mg Hydrox/Simethicone (Mag-Al Plus) 15 ml Q6H PRN PO CONSTIPATION/ DYSPEPSIA; Start 05/15/17 at 10:00 Acetaminophen (Tylenol Tab) 650 mg Q4H PRN PO VICTORIA OR TEMP GREATER THAN 101.3F; Start 05/15/17 at 10:00 Cyclobenzaprine HCl (Flexeril) 10 mg TID PRN PO MUSCLE SPASMS Last administered on 05/16/17 08:45; Admin Dose 10 MG; Start 05/15/17 at 10:00 Phenol (Cepastat Lozenge) 1 lozenge PRN PRN MT SORE THROAT; Start 05/15/17 at 10:00 Diphenhydramine HCl (Benadryl) 25 mg Q6H PRN IV ITCHING; Start 05/15/17 at 10: 00 Naloxone HCl (Narcan) 0.2 mg Q2M PRN IV RR 8 BREATHS/MIN OR LESS; Start at 10:00 Miscellaneous Information 1. Hold SNACK STEWARDESS at 1,000... SNACK STEWARDESS IV ; Start 05/15/17 at 10 :00 Morphine Sulfate (Ms Contin (Er)) 15 mg BID PO Last administered on 05/18/17 08:42; Admin Dose 15 MG; Start 05/15/17 at 21:00 Miscellaneous Information (* Miscellaneous Pharmacy Order) atripla - 1 PO daily sara... ONCE XX ; Start 05/15/17 at 10:00 Elvitegravir/ Cobicis/Emtricit/ Tenof (Stribild Tablet) 1 each DAILY PO Last administered on 05/17/17 08:53; Admin Dose 1 EACH; Start 05/16/17 at 12:00 Clonidine (Catapres) 0.1 mg QID PO Last administered on 05/17/17 20:31; Admin Dose 0.1 MG; Start 05/16/17 at 09:00 Hydromorphone HCl (Dilaudid) 0.2 mg Q1H PRN IV BREAKTHROUGH PAIN; Start at 11:00 JERRY MARQUEZ MD May 18, 2017 10:31
[2017-05-18 11:53] LABS: ABNORMAL IP MESSAGE 1; BASOPHILS % 0.3 % (0.0-2.0); EOSINOPHILS # 0.2 10^3/ul (0.0-0.5); EOSINOPHILS % 3.1 % (0.0-7.0); HEMATOCRIT 34.5 % (42.0-52.0); HEMOGLOBIN 11.6 g/dl (14.0-18.0); LYMPHOCYTES # 1.1 10^3/ul (0.8-2.9); LYMPHOCYTES % 15.2 % (15.0-51.0); MEAN CORPUSCULAR HEMOGLOBIN 32.6 pg (29.0-33.0); MEAN CORPUSCULAR HGB CONC 33.6 g/dl (32.0-37.0); MEAN CORPUSCULAR VOLUME 96.9 fl (82.0-101.0); MEAN PLATELET VOLUME 13.2 fl (7.4-10.4); MONOCYTE # 0.6 10^3/ul (0.3-0.9); MONOCYTES % 7.9 % (0.0-11.0); NEUTROPHIL # 5.4 10^3/ul (1.6-7.5); NEUTROPHILS % 73.1 % (39.0-77.0); PLATELET COUNT 102 10^3/UL (140-415); POSITIVE DIFF @See below; RED BLOOD COUNT 3.56 10^6/ul (4.70-6.10); RED CELL DISTRIBUTION WIDTH 12.2 % (11.5-14.5); WHITE BLOOD COUNT 7.4 10^3/ul (4.8-10.8)
[2017-05-18 12:33] LABS: CALCIUM 8.6 mg/dl (8.4-10.2); CREATININE 0.89 mg/dl (0.61-1.24); MAGNESIUM 2.1 mg/dl (1.7-2.5); POTASSIUM 3.7 mmol/L (3.5-5.1)
--- NOTE | 2017-05-18 13:15 | PN ---
DATE: 05/18/2017 SUBJECTIVE: Gross hematuria. Patient did have the hematuria when he had a Atkins catheter inserted in the operating room, the catheter was inserted without any resistance and he was noted to have wendy ss hematuria. Therefore, I did see him in consultation. Since then, the Atkins catheter has been re moved. The patient has been voiding. He still has mild hematuria but the patient is voiding well a nd his postvoid residual is minimal. OBJECTIVE: VITAL SIGNS: His temperature is 98.1, pulse 69, respiration 18, blood pressure 126/59. ABDOMEN: Soft. LABORATORY DATA: His last CBC shows a white count of 7.4, hemoglobin 11.6, hematocrit 34.5. BUN is 15, creatinine 0.89, sodium 141, potassium 3.7, chloride 103, CO2 29. The urine culture no growth after 48 hours on 2 different samples. A urine cytology showed no evidence of malignant cells, tong wyatt has other urine cytology that are pending, but we will check that. IMPRESSION: Gross hematuria that is clearing and the patient will need to be followed up, and we in structed him to do so and to see his primary care physician. He could be discharged home today from a urological standpoint and again he needs to follow up with his primary care physician and if the primary care physician referred him to me or to a local urologist it would be beneficial to the sara ent. The cytology will be checked later on and if there is anything in it unusual then we will call the patient and let him know. Dictated By: OKSANA SAXENA/DAYANARA Conf#: [id number] DID#: [id number]
--- NOTE | 2017-05-18 14:39 | DS ---
DATE OF ADMISSION: 05/15/2017 DATE OF DISCHARGE: 05/18/2017 ADMITTING DIAGNOSIS: Status post spinal fusion. FINAL DIAGNOSIS: Status post spinal fusion. PROCEDURE: The patient was taken to the operating room on 05/18/2017 underwent revision spinal fusi on. HOSPITAL COURSE: The patient was admitted to the [facility] after undergoing the above procedu re. He had postoperative confusion, but was having this confusion preoperatively likely due to HIV dementia. By postoperative day 3, he was back to baseline, doing well. He was cleared by physical therapy and was stable to be discharged to home with followup arranged with the undersigned. Dictated By: ARUNA SAXENA/DAYANARA Conf#: [id number] DID#: [id number]
== END 2017-05-18 14:40 | disposition home health service (06) | DRG 455 ==
LOC: REC 07:45 → MS1 19:00
PROVIDERS: ADMIT Specialist; ATTEND Specialist
PROC: 0SG00K1 Fusion of Lumbar Vertebral Joint with Nonautologous Tissue Substitute, Posterior Approach, Posterior Column, Open Approach (ICD-10-PCS; 2017-05-15)
PROC: 0SB20ZZ Excision of Lumbar Vertebral Disc, Open Approach (ICD-10-PCS; 2017-05-15)
PROC: 0QP004Z Removal of Internal Fixation Device from Lumbar Vertebra, Open Approach (ICD-10-PCS; 2017-05-15)
PROC: 0QP104Z Removal of Internal Fixation Device from Sacrum, Open Approach (ICD-10-PCS; 2017-05-15)
PROC: 4A11X4G Monitoring of Peripheral Nervous Electrical Activity, Intraoperative, External Approach (ICD-10-PCS; 2017-05-15)
PROC: 0SG00A0 Fusion of Lumbar Vertebral Joint with Interbody Fusion Device, Anterior Approach, Anterior Column, Open Approach (ICD-10-PCS; principal; 2017-05-15 09:30)
DX: M96.0 Pseudarthrosis after fusion or arthrodesis (principal); F03.90 Unspecified dementia, unspecified severity, without behavioral disturbance, psychotic disturbance, mood disturbance, and anxiety; M43.16 Spondylolisthesis, lumbar region; Y83.8 Other surgical procedures as the cause of abnormal reaction of the patient, or of later complication, without mention of misadventure at the time of the procedure; Y79.3 Surgical instruments, materials and orthopedic devices (including sutures) associated with adverse incidents; I10 Essential (primary) hypertension; R31.0 Gross hematuria; R33.9 Retention of urine, unspecified; Z96.643 Presence of artificial hip joint, bilateral
CPT/HCPCS: 72114; 80048; 81001; 82962; 83735; 84100; 85025; 86850; 86900; 86901; 86920; 86999; 87086; 97116; 97162; 97530; C1713; J0131; J0690; J1100; J1170; J1644; J2250; J2405; J2765; J3010; J3475; J3480; V2790